=== PATIENT | female | born 1960 | race Two or more races ===

== ENCOUNTER 2025-06-04 09:17 | Emergency (ER) | payer OTHER, SELFPAY ==
[~2025-06-04] VITALS: Ht 160 cm; Wt 106.8 kg
--- NOTE | 2025-06-04 09:49 | ECG ---
[facility] Test Date: 2025-06-04 Test Time: 09:33:40 Pat Name: KRISTEN RAMESH Department: Room: Gender: F Roll Hauler: JAMARCUS : 1960 Requested By: FLAVIA HARE Order Number: [id number] Reading MD: Alon Hall Measurements Intervals [place] Rate: 79 P: 58 KS: 135 QRS: 71 QRSD: 92 T: 43 QT: 388 QTc: 445 Interpretive Statements Sinus arrhythmia Electronically Signed On 06-07-2025 14:36:02 PDT by Alon Hall Please click the below link to view image of tracing.
--- NOTE | 2025-06-04 09:55 | ED.PDOC ---
Back pain HPI HPI Comments A 64 YEAR OLD FEMALE PRESENTS TO THE ED WITH COMPLAINT OF NECK PAIN WITH ASSOCIATED NUMBNESS TO LEFT ARM WITH TINGLING. PATIENT STATES THAT STARTING THIS MORNING SHE SPONTANEOUSLY BEGAN TO HAVE LEFT-SIDED NECK PAIN THAT SHE DESCRIBES ACHING. PATIENT MENTIONS THAT WITH THIS NECK PAIN SHE IS EXPERIENCING LEFT ARM NUMBNESS AND TINGLING IN HER HANDS. PATIENT DENIES FEVER, CHILLS, SHORTNESS OF BREATH, CHEST PAIN, ABDOMINAL PAIN, NAUSEA, VOMITING, HEADACHE, OR OTHER COMPLAINTS. NO OTHER SYMPTOMS OR MODIFYING FACTORS AT THIS TIME. PATIENT IS ALERT, ORIENTED X 4, AND HAS STEADY GAIT. Chief Complaint: Neck Pain Time Seen by MD: 09:48 Reviewed Notes: Nurses Notes, Medications, Allergies Information Source: Patient Mode of Arrival: Ambulatory Timing: Hours Duration: Since onset Location of Back pain: (B) Cervical, Other (LEFT UPPER EXTREMITY ) Severity: Moderate Prehospital treatment: None Quality: Aching Onset: Spontaneous Modifying Factors: Movement, Twisting Associated signs and symptoms: None Past Medical History PAST MEDICAL HISTORY: DM, HTN Surgical History: Denies all surgeries GERIATRIC AIDE History: Denies all GERIATRIC AIDE Hx Family History Family History: Reviewed,noncontributory to illness Social History Smoker: Non-Smoker Alcohol: Denies ETOH Use Drugs: Denies Drug Use Lives In: Home Constitutional: denies: chills, diaphoresis, fatigue, fever, malaise, sweats, weakness, others EENTM: denies: blurred vision, double vision, ear bleeding, ear discharge, ear drainage, ear pain, ear ringing, eye pain, eye redness, hearing loss, mouth pain, mouth swelling, nasal discharge, nose bleeding, nose congestion, nose pain, photophobia, tearing, throat pain, throat swelling, voice changes, others Respiratory: denies: cough, hemoptysis, orthopnea, SOB at rest, shortness of breath, SOB with excertion, stridor, wheezing, others Cardiovascular: denies: chest pain, dizzy spells, diaphoresis, Dyspnea on exertion, edema, irregular heart beat, left arm pain, lightheadedness, palpitations, PND, syncope, others Gastrointestinal: denies: abdomen distended, abdominal pain, blood streaked bowels, constipated, diarrhea, dysphagia, difficulty swallowing, hematemesis, melena, nausea, poor appetite, poor fluid intake, rectal bleeding, rectal pain, vomiting, others Genitourinary: denies: abnormal vagina bleeding, burning, dyspareunia, dysuria, flank pain, frequency, hematuria, incontinence, pain, , vagina discharge, urgency, others Neurological: reports: numbness, tingling; denies: dizziness, fainting, headache, left sided numbness, left sided weakness, paresthesia, pre-existing deficit, right sided numbness, right sided weakness, seizure, speech problems, tremors, weakness, others Musculoskeletal: reports: muscle pain, neck pain; denies: back pain, gout, joint pain, joint swelling, muscle stiffness, others Integumetry: denies: bruises, change in color, change in hair/nails, dryness, laceration, lesions, lumps, rash, wounds, others Allergic/Immunocompromised: denies: Difficulty Healing, Frequent Infections, Hives, Itching, others Hematologic/Lymphatic: denies: anemia, blood clots, easy bleeding, easy bruising, swollen glands, others Endocrine: denies: excessive hunger, excessive sweating, excessive thirst, excessive urination, flushing, intolerance to cold, intolerance to heat, unexplained weight gain, unexplained weight loss, others Psychiatric: denies: anxiety, bipolar disorder, depression, hopeless, panic disorder, schizophrenia, sleepless, suicidal, others All Other Systems: Reviewed and Negative Physical Exam General Appearance: No Apparent Distress, Obese HEENT: Normal ENT Inspection, PERRL/EOMI, Pharynx Normal, TMs Normal Neck: Full Range of Motion, Normal Inspection, Supple, Tender Lateral (TENDERNESS AND MUSCLE SPASM ON P[OSTERIOR NECK, NO BONY TENDERNESS, SWELLING AND DEFORMITY. ) Respiratory: Chest Non-Tender, Lungs Clear, No Accessory Muscle Use, No Respiratory Distress, Normal Breath Sounds Cardiovascular: No Edema, No JVD, No Murmur, No Gallop, Normal Peripheral Pulses, Regular Rate/Rhythm Breast Exam: Deferred Gastrointestinal: No Organomegaly, Non Tender, No Pulsatile Mass, Normal Bowel Sounds, Soft Genitalia: Deferred Pelvic: Deferred Rectal: Deferred Extremities: No calf tenderness, Normal capillary refill, Normal inspection, Normal range of motion, Non-tender, No pedal edema Musculoskeletal : Apperance: Normal Neurologic: Alert, chair inspector II-XII nml as Tested, No Motor Deficits, Normal Affect, Normal Mood, No Sensory Deficits Cerebellar Function: Normal Reflexes: Normal Skin: Dry, Normal Color, Warm Peripheral Pulses: 2+ carotid (R), 2+ carotid (L) Lymphatic: No Adenopathy Was a procedure done? Was a procedure done?: No Back Pain Differential Dx Differential Diagnosis: Musculoskeletal Pain, Strain, Other (DDD OF NECK) X-Ray, Labs, Meds, VS Vital Signs Date Time Temp Pulse Resp B/P (MAP) Pulse Ox O2 Delivery O2 Flow Rate FiO2 06/04/25 09:33 79 06/04/25 09:24 97.5 94 18 148/74 95 97.5 Current Medications Medications (Trade) Dose Ordered Sig/Katrin Route Start Time Stop Time Status Last Admin Ketorolac Tromethamine (Toradol Injection) 60 mg ONCE ONCE IM 06/04/25 10:00 06/04/25 10:01 DC 06/04/25 10:36 PATIENT: KARMEN BLOOMCT: [id number]: [id number] : 1960 LOC: ER ROOM / BED: / AGE / SEX: 64 / F ADM STATUS: REG ER SERVICE [id number] ORDERING PHYSICIAN: FLAVIA HARE PROCEDURE(s): CERV2 - CERVICAL SPINE 3V REASON: NECK PAIN TO LEFT UPPER EXTREMITY ORDER NUMBER(s): [id number], ACCESSION NUMBER(s): [id number] INDICATION: NECK PAIN TO LEFT UPPER EXTREMITY TECHNIQUE: 3 views of the cervical spine were obtained. COMPARISON: None FINDINGS: The cervical spine is visualized from C1-C7. There is loss of the normal cervical lordosis which can be positional. No fractures or subluxations are identified. Multilevel degenerative changes of the spine Alignment appears unremarkable. Prevertebral soft tissues are within normal limits. IMPRESSION: No acute fracture or subluxation ATED BY: LUIS CARLOS GRAVES MD DICTATED DATE/TIME: 06/04/251016 SIGNED BY: LUIS CARLOS GRAVES MD SIGNED DATE/TIME: 06/04/25 101 X-Ray, Labs, Meds, VS Comment EXTERNAL MEDICAL RECORDS REVIEWED: [NONE] INDEPENDENT HISTORIANS: [NONE] SOCIAL DETERMINANTS OF HEALTH: [NONE] LABS ORDERED: NONE REVIEWED AND INTERPRETED RESULTS: NONE IMAGING ORDERED: C SPINE X-RAY TREATMENTS ORDERED: TORADOL 60MG IM PROCEDURES PERFORMED: NONE CRITICAL CARE TIME: NONE I HAVE DISCUSSED THE PATIENT WITH THE ATTENDING PHYSICIAN, DR. MOURA, AND SHE AGREES WITH THE PATIENT'S PLAN OF CARE AND DISPOSITION. BASED ON HISTORY OF PRESENT ILLNESS, AND PHYSICAL EXAM, PATIENT WILL BE DISCHARGED HOME. DISCUSSED PLAN FOR DISCHARGE HOME WITH RX [MOTRIN AND ROBAXIN ]. MEDICATION WARNINGS GIVEN. SHARED DECISION MAKING: DISCUSSED WITH PATIENT THAT THEIR WORKUP WAS NORMAL. PATIENT INSTRUCTED TO FOLLOW UP WITH PRIMARY CARE PROVIDER IN 1-2 DAYS FOR RE- EVALUATION OF SYMPTOMS. PATIENT VERBALIZES UNDERSTANDING TO RETURN TO ED FOR NEW OR WORSENING SYMPTOMS OR IF FOLLOW UP WITH PCP CANNOT BE OBTAINED. PATIENT FEELS COMFORTABLE GOING HOME AT THIS TIME. ALL QUESTIONS ADDRESSED AT TIME OF DISCHARGE. Time of 1ST Reevaluation: 10:18 Reevaluation 1ST: Improved Patient Education/Counseling: Diagnosis, Treatment, Need For Follow Up Family Education/Counseling: Diagnosis, Treatment, Need For Follow Up Medical Screening: No EMC Exist At This Time SEPSIS Sepsis Screen Date sepsis recognized/suspect: Jun 04, 2025 Time Sepsis recognized/suspect: 927 Recent Procedure: No On Antibiotic Therapy: No Respiratory Rate >20: No Heart Rate >90: Yes Temp<36 C (96.8 F) or >38.3 C: No SBP <90 or MAP <65 mmHG: No New Acute Mental Status Change: No Is the patient on CPAP, BIPAP,: No Physician Orders Cervical Spine 3v (06/04/25 09:49) Vital Signs Date Time Temp Pulse Resp B/P (MAP) Pulse Ox O2 Delivery O2 Flow Rate FiO2 06/04/25 09:33 79 06/04/25 09:24 97.5 94 18 148/74 95 97.5 Medications Medications Dose Ordered Sig/Katrin Route Start Time Stop Time Status Last Admin Dose Admin Ketorolac Tromethamine 60 mg ONCE ONCE IM 06/04/25 10:00 06/04/25 10:01 DC 06/04/25 10:36 Departure 1 Departure Time of Disposition: 10:42 Impression: Primary Impression: DDD (degenerative disc disease), cervical Additional Impression: Cervical radiculopathy Disposition: 01 HOME / SELF CARE / HOMELESS Condition: Stable Additional Instructions: FOLLOW-UP WITH PCP IN 1 TO 2 DAYS. TAKE MEDICATIONS PRESCRIBED. RETURN TO ED FOR ANY NEW OR WORSENING SYMPTOMS. e-Prescriptions Methocarbamol (Methocarbamol) 750 Mg Tab 750 MG PO BID, #20 TAB Prov: FLAVIA HARE 06/04/25 Ibuprofen (Ibuprofen) 800 Mg Tab 1 TAB PO TID, #30 TAB Prov: FLAVIA HARE 06/04/25 Discharged With: Self Critical Care Note Critical Care Time?: No Stability Stability form required: No Heart Score Heart Score: Heart Score Response (Comments) Value History N/A 0 EKG N/A 0 Age N/A 0 Risk Factors N/A 0 Troponin N/A 0 Total 0 I personally scribed for FLAVIA HARE ([email or web address]) on 06/04/25 at 09:55. Electronically submitted by Jose Cantor ([email or web address]). I personally scribed for FLAVIA HARE ([email or web address]) on 06/04/25 at 10:40. Electronically submitted by Jose Cantor ([email or web address]). I personally scribed for FLAVIA HARE ([email or web address]) on 06/04/25 at 10:42. Electronically submitted by Jose Cantor ([email or web address]). FLAVIA HARE Jun 04, 2025 09:55
--- NOTE | 2025-06-04 10:20 | DVH ---
INDICATION: NECK PAIN TO LEFT UPPER EXTREMITY TECHNIQUE: 3 views of the cervical spine were obtained. COMPARISON: None FINDINGS: The cervical spine is visualized from C1-C7. There is loss of the normal cervical lordosis which can be positional. No fractures or subluxations are identified. Multilevel degenerative changes of the spine Alignment appears unremarkable. Prevertebral soft tissues are within normal limits. IMPRESSION: No acute fracture or subluxation
[2025-06-04] MEDS: KETOROLAC TROMETH 60MG/2ML VIAL IM ONE (10:36)
[2025-06-04] MEDS ORDERED: IBUP-1456 PO (10:57)
[2025-06-04] MEDS ORDERED: METH-1182 PO (10:57)
[2025-06-04 11:03] VITALS: BP 162/78; PULSE 85; RESP 20; TEMP 98.2; O2SAT 96
== END 2025-06-04 11:06 | disposition home or self-care (01) ==
LOC: ER 09:17
DX: M50.10 Cervical disc disorder with radiculopathy, unspecified cervical region (principal); I10 Essential (primary) hypertension; E11.9 Type 2 diabetes mellitus without complications
CPT/HCPCS: 72040; 93005; 96372; 99283; J1885